=== PATIENT | male | born 1960 | race Caucasian/White ===

== ENCOUNTER 2025-01-23 13:15 | Outpatient (CLI) | payer MEDICARE ==
--- NOTE | 2025-01-23 14:31 | RADIOLOGY REPORT ---
PROCEDURE: MR MRI LUMBAR SPINE INDICATION: RADICULOPATHY,LUMBAR REGION Exam Date: 01/23/2025 01:38 PM COMPARISON: None TECHNIQUE: MRI lumbar spine without intravenous contrast. FINDINGS: Multilevel disc degeneration. Alignment: Grade 1 retrolisthesis of L4 on L5. Grade 1 retrolisthesis of L5 on S1. Vertebrae: Vertebral body height is well maintained without evidence of a recent compression fracture. Conus: Conus medullaris terminates at the L1-L2 level. T12-L1: Disc desiccation. No spinal canal or neural foraminal stenosis. Facet arthrosis. L1-2: Disc desiccation. No spinal canal or neural foraminal stenosis. Facet arthrosis. L2-3: Disc desiccation and disc bulge. Mild disc height loss. Moderate spinal canal stenosis. Bilateral subarticular zone stenosis. No neural foraminal stenosis. Facet arthrosis. L3-4: Disc desiccation. No spinal canal or neural foraminal stenosis. Facet arthrosis. L4-5: Grade 2 retrolisthesis of L4 on L5 by 4.4 mm. Disc desiccation. Disc bulge with superimposed left subarticular disc protrusion. Bilateral subarticular zone stenosis with left descending L5 nerve root compression from protrusion. Moderate right and severe left foraminal stenosis with potential left exiting L4 nerve root compression. Facet arthrosis. L5-S1: Grade 2 retrolisthesis of L5 on S1 by 3.3 mm. Severe disc height loss. Disc bulge with superimposed right extraforaminal disc protrusion. Bilateral subarticular zone stenosis with right descending S1 nerve root compression. Moderate bilateral foraminal stenosis. Facet arthrosis. IMPRESSION: Multilevel disc degeneration. Multilevel foraminal stenosis, most pronounced and severe at L4-L5 with potential left exiting L4 nerve root compression. Moderate spinal canal stenosis at L2-L3 level.
== END 2025-01-23 23:59 | disposition home or self-care (01) ==
LOC: MRI02 13:15
PROVIDERS: ATTEND Anesthesiology
DX: M51.17 Intervertebral disc disorders with radiculopathy, lumbosacral region (principal); M47.27 Other spondylosis with radiculopathy, lumbosacral region; M48.07 Spinal stenosis, lumbosacral region
CPT/HCPCS: 72148